=== PATIENT | female | born 1945 | race Two or more races ===

== ENCOUNTER 2020-07-18 11:01 | Inpatient (IN) | payer OTHER, MEDICAID ==
[2020-07-17 21:58] VITALS: BP 127/77
[~2020-07-18] VITALS: Ht 160 cm; Wt 86.5 kg
[2020-07-18] MEDS ORDERED: CHOLECALCIFEROL (VITD3) 2,000 UNIT CAP PO ONE (11:15)
[2020-07-18] MEDS ORDERED: methylPREDNISolone SOD SUCC 125 MG/2 ML VL IV ONE (11:15)
[2020-07-18] MEDS ORDERED: ASCORBIC ACID 500 MG TAB PO ONE (11:15)
[2020-07-18] MEDS ORDERED: ZINC SULFATE 220mg CAP or TAB PO ONE (11:15)
[2020-07-18] MEDS ORDERED: REMDESIVIR PER PHARMACY 0 ML IV SCH (11:30)
[2020-07-18 11:50] LABS: Basophils # (auto) 0 10 ^3/uL (0-0.2); Basophils % (auto) 0.1 % (0.0-2.0); Eosinophils # (auto) 0 10 ^3/uL (0-0.8); Hematocrit 33.4 % (36.0-46.0); Hemoglobin 10.9 g/dL (12.2-16.2); Lymphocytes # (auto) 0.5 10 ^3/uL (0.4-5.4); Mean Corpuscular Hemoglobin 27.1 pg (28.0-32.0); Mean Corpuscular Hgb Conc. 32.5 g/dL (32.0-36.0); Mean Corpuscular Volume 83.6 fL (80.0-100.0); Monocytes # (auto) 0.3 10 ^3/uL (0-1.3); Monocytes % (auto) 7.6 % (0.0-12.0); Neutrophils # (auto) 3.2 10 ^3/uL (1.6-8.6); Neutrophils % (auto) 80.3 % (37.0-80.0); Platelet Count (auto) 121 10^3/uL (140-450); Red Cell Distribution Width 14.1 % (11.8-14.3)
[2020-07-18 12:06] LABS: Chloride 102 mmol/L (98-107); Potassium 3.6 mmol/L (3.5-5.1); Sodium 134 mmol/L (136-145)
[2020-07-18 12:23] LABS: Alanine Aminotransferase 24 U/L (13-56); Alkaline Phosphatase 100 U/L (45-117); Anion Gap 7 (5-15); Aspartate Aminotransferase 38 U/L (15-37); Bilirubin, Total 0.4 mg/dL (0.2-1.0); Blood Urea Nitrogen 45 mg/dL (7-18); CRP High Sensitivity 8.28 mg/dL (< 0.3); Calcium 7.9 mg/dL (8.5-10.1); Carbon Dioxide 25 mmol/L (21-32); GFR African American 23 mL/min; GFR Non-African American 19 mL/min; Glucose 105 mg/dL (74-106); Total Protein 7.9 g/dL (6.4-8.2)
[2020-07-18] MEDS ORDERED: ACETAMINOPHEN 500 MG TAB PO PRN (14:00)
[2020-07-18 14:14] LABS: Magnesium 2.4 mg/dL (1.6-2.6)
[2020-07-18 14:23] LABS: CRP High Sensitivity 8.94 mg/dL (< 0.3)
[2020-07-18] MEDS ORDERED: SODIUM BICARBONATE 50ML VIAL 75 ML in SOD CHL 0.45% 1,000 ML IV ONE (16:15)
[2020-07-18] MEDS ORDERED: MORPHINE SULF INJ 2 MG/ML SYRINGE 1ML IV PRN (18:30)
[2020-07-18] MEDS ORDERED: NITROGLYCERIN 0.4 MG SL TAB SL PRN (18:30)
[2020-07-18] MEDS: BUDESONIDE (INHALATION) 180 MCG IH IN SCH ×2 (19:00→22:00)
[2020-07-18 21:58] VITALS: BP 127/77
[2020-07-18 22:07] LABS: Urine Bacteria FEW /hpf (None Seen); Urine Blood Negative /uL (Negative); Urine Specific Gravity 1.011 (1.001-1.035); Urine WBC 1 /hpf (0 - 5)
[2020-07-18] MEDS: DOXYCYCLINE 100 MG TAB/CAP PO SCH (22:38)
[2020-07-18] MEDS: ALBUTEROL SULF HFA 90MCG INH 200DOSE IN PRN (22:38)
[2020-07-18] MEDS: HEPARIN SODIUM (PORCINE) 5000 UNITS/ML 1ML VIAL SC SCH (22:39)
[2020-07-19] VITALS: BP 127/77
[2020-07-19] MEDS: BUDESONIDE (INHALATION) 180 MCG IH IN SCH ×2 (06:40→20:18)
[2020-07-19 07:35] LABS: Basophils # (auto) 0 10 ^3/uL (0-0.2); Basophils % (auto) 0.2 % (0.0-2.0); Eosinophils # (auto) 0 10 ^3/uL (0-0.8); Hematocrit 31.8 % (36.0-46.0); Hemoglobin 10.5 g/dL (12.2-16.2); Lymphocytes # (auto) 0.6 10 ^3/uL (0.4-5.4); Lymphocytes % (auto) 16.1 % (10.0-50.0); Mean Corpuscular Hemoglobin 27.3 pg (28.0-32.0); Mean Corpuscular Volume 82.6 fL (80.0-100.0); Monocytes # (auto) 0.3 10 ^3/uL (0-1.3); Monocytes % (auto) 8.6 % (0.0-12.0); Neutrophils # (auto) 2.9 10 ^3/uL (1.6-8.6); Neutrophils % (auto) 75.1 % (37.0-80.0); Nucleated Red Blood Cells % 0.1 %; Platelet Count (auto) 111 10^3/uL (140-450); Red Blood Cells 3.86 10^6/uL (4.0-5.20); Red Cell Distribution Width 13.9 % (11.8-14.3); White Blood Cell 3.8 10^3/uL (4.4-10.8)
[2020-07-19 07:50] LABS: Albumin 2.7 g/dL (3.4-5.0); Calcium 7.8 mg/dL (8.5-10.1); Potassium 3.5 mmol/L (3.5-5.1)
[2020-07-19 07:55] LABS: BUN/Creatinine Ratio 21.6; Bilirubin, Total 0.3 mg/dL (0.2-1.0); Total Protein 7.3 g/dL (6.4-8.2)
[2020-07-19 08:00] VITALS: BP 125/67
[2020-07-19] MEDS: ASCORBIC ACID 1,000 MG TAB PO SCH (10:30)
[2020-07-19] MEDS: CHOLECALCIFEROL (VITD3) 2,000 UNIT CAP PO SCH (10:30)
[2020-07-19] MEDS: DOXYCYCLINE 100 MG TAB/CAP PO SCH ×2 (10:31→20:26)
[2020-07-19] MEDS: ZINC SULFATE 220mg CAP or TAB PO SCH (10:31)
[2020-07-19] MEDS: DexAMETHasone SOD PHOS 10MG/1ML VIAL INJ IV SCH (10:32)
[2020-07-19] MEDS: HEPARIN SODIUM (PORCINE) 5000 UNITS/ML 1ML VIAL SC SCH (10:51)
[2020-07-19] MEDS ORDERED: DOX100T PO (14:23)
[2020-07-19] MEDS ORDERED: FAMO20TA10 PO (14:23)
[2020-07-19] MEDS ORDERED: ALBUAER3 IN (14:23)
[2020-07-19] MEDS ORDERED: DEX4T PO (14:23)
[2020-07-19] MEDS ORDERED: CHOL1CAP47 PO (14:23)
[2020-07-19] MEDS ORDERED: ASCO10003 PO (14:23)
[2020-07-19 15:58] VITALS: BP 129/76
[2020-07-19 19:12] LABS: INR 0.96 (0.9-1.15); Partial Thromboplastin Time 29.9 sec (23.0-31.2)
[2020-07-19] MEDS: ALBUTEROL SULF HFA 90MCG INH 200DOSE IN PRN (20:18)
[2020-07-19] MEDS: HEPARIN DRIP/D5W 100UNITS/ML 250 ML IV SCH (20:25)
[2020-07-19] MEDS: SOD CHL 0.45% 1,000 ML IV SCH (20:35)
[2020-07-20] VITALS: BP 154/80
[2020-07-20 02:24] LABS: Basophils # (auto) 0 10 ^3/uL (0-0.2); Basophils % (auto) 0.1 % (0.0-2.0); Eosinophils # (auto) 0 10 ^3/uL (0-0.8); Hematocrit 29.2 % (36.0-46.0); Hemoglobin 9.7 g/dL (12.2-16.2); Lymphocytes # (auto) 0.8 10 ^3/uL (0.4-5.4); Lymphocytes % (auto) 8.8 % (10.0-50.0); Mean Corpuscular Hemoglobin 27.3 pg (28.0-32.0); Mean Corpuscular Hgb Conc. 33.3 g/dL (32.0-36.0); Monocytes # (auto) 0.5 10 ^3/uL (0-1.3); Monocytes % (auto) 5.8 % (0.0-12.0); Neutrophils # (auto) 7.5 10 ^3/uL (1.6-8.6); Neutrophils % (auto) 85.3 % (37.0-80.0); Nucleated Red Blood Cells % 0.1 %; Platelet Count (auto) 126 10^3/uL (140-450); Red Blood Cells 3.56 10^6/uL (4.0-5.20); Red Cell Distribution Width 13.8 % (11.8-14.3); White Blood Cell 8.8 10^3/uL (4.4-10.8)
[2020-07-20 03:06] LABS: Albumin 2.6 g/dL (3.4-5.0); Calcium 7.7 mg/dL (8.5-10.1); Potassium 3.2 mmol/L (3.5-5.1)
[2020-07-20 03:16] LABS: BUN/Creatinine Ratio 26.2; Bilirubin, Total 0.3 mg/dL (0.2-1.0); CRP High Sensitivity 3.61 mg/dL (< 0.3); INR 1.04 (0.9-1.15); Total Protein 6.8 g/dL (6.4-8.2)
[2020-07-20 03:19] LABS: Partial Thromboplastin Time 118.1 sec (23.0-31.2)
[2020-07-20 05:00] VITALS: BP 127/84
[2020-07-20 08:00] VITALS: BP 135/76
[2020-07-20] MEDS: BUDESONIDE (INHALATION) 180 MCG IH IN SCH (08:30)
[2020-07-20] MEDS: ALBUTEROL SULF HFA 90MCG INH 200DOSE IN PRN (08:30)
[2020-07-20 09:08] VITALS: BP 127/84
[2020-07-20] MEDS: CHOLECALCIFEROL (VITD3) 2,000 UNIT CAP PO SCH (09:17)
[2020-07-20] MEDS: DOXYCYCLINE 100 MG TAB/CAP PO SCH (09:17)
[2020-07-20] MEDS: DexAMETHasone SOD PHOS 10MG/1ML VIAL INJ IV SCH (09:17)
[2020-07-20] MEDS: ASCORBIC ACID 1,000 MG TAB PO SCH (09:17)
[2020-07-20] MEDS: ZINC SULFATE 220mg CAP or TAB PO SCH (09:17)
[2020-07-20] MEDS: SOD CHL 0.45% 1,000 ML IV SCH (09:22)
[2020-07-20] MEDS: HEPARIN DRIP/D5W 100UNITS/ML 250 ML IV SCH (10:08)
[2020-07-20 16:00] VITALS: BP 110/79
== END 2020-07-20 17:10 | disposition home health service (06) | DRG 871 ==
LOC: EDBD 11:01 → ER 11:01 → TELE 18:33 → TELE-WESTW 21:58
PROVIDERS: ADMIT Hospitalist; ATTEND Hospitalist
PROC: XW033E5 Introduction of Remdesivir Anti-infective into Peripheral Vein, Percutaneous Approach, New Technology Group 5 (ICD-10-PCS; principal; 2020-07-18)
DX: A41.89 Other specified sepsis (principal); U07.1 COVID-19; J12.82 Pneumonia due to coronavirus disease 2019; J96.01 Acute respiratory failure with hypoxia; N18.4 Chronic kidney disease, stage 4 (severe); N17.9 Acute kidney failure, unspecified; I82.402 Acute embolism and thrombosis of unspecified deep veins of left lower extremity; I12.9 Hypertensive chronic kidney disease with stage 1 through stage 4 chronic kidney disease, or unspecified chronic kidney disease; Z83.3 Family history of diabetes mellitus; D64.9 Anemia, unspecified
CPT/HCPCS: 36415; 71045; 80053; 81001; 82306; 82570; 82728; 83605; 83615; 83735; 84300; 84443; 84484; 85025; 85379; 85610; 85730; 86141; 87040; 87426; 93005; 93970; 94640; 96365; 96375; 99291; G0378; J1100